=== PATIENT | male | born 1975 | race Caucasian/White ===

== ENCOUNTER 2022-08-24 07:56 | Inpatient (IN) | payer MEDICARE, MEDICAID ==
[2022-08-24] MEDS ORDERED: Albuterol 0.083% 2.5 MG/3 ML Neb Soln NEB ONE (07:59)
[2022-08-24] MEDS ORDERED: Ipratropium 0.02% 0.5 MG/2.5 ML Neb Soln NEB ONE (07:59)
[2022-08-24] MEDS ORDERED: Aspirin 81 MG Tab.Chew PO ONE (08:00)
[2022-08-24 08:51] LABS: CARBON DIOXIDE,CO2 26.3 mmol/L (21.0-32.0); CORONAVIRUS COVID-19 NAA POSITIVE (NEGATIVE); INFLUENZA A NAA NEGATIVE (NEGATIVE); INFLUENZA B NAA NEGATIVE (NEGATIVE)
[2022-08-24] MEDS: Furosemide 20 MG/2 ML VIAL IVPUSH ONE ×2 (08:58→09:00)
[2022-08-24] MEDS ORDERED: Magnesium Sulfate/Water 2 GM in Premix Bag 1 BAG IV ONE (09:15)
[2022-08-24] MEDS ORDERED: Dexamethasone 10 MG/ML SDV IVPUSH ONE (09:22)
[2022-08-24] MEDS ORDERED: Acetaminophen 500 MG Tab PO ONE (09:29)
[2022-08-24] MEDS: Potassium Chloride 100 ML IV SCH ×2 (09:29→12:13)
[2022-08-24] MEDS ORDERED: Sodium Chloride 0.9% 500 ML IV ONE (09:30)
[2022-08-24] MEDS ORDERED: Ondansetron 4 MG/2 ML SDV IVPUSH ONE (09:33)
[2022-08-24] MEDS ORDERED: Iopamidol 755 MG/ML 500 ML Multipack Bottle IVPUSH STA (09:50)
[2022-08-24] MEDS ORDERED: Heparin Sodium 5,000 Units/ML Vial IVPUSH ONE (11:02)
[2022-08-24] MEDS: Heparin Sodium/0.45% NaCl 500 ML IV SCH (11:24)
[2022-08-24] MEDS ORDERED: Cyclobenzaprine 10 MG Tab PO PRN ×2 (14:30→22:25)
[2022-08-24] MEDS ORDERED: Acetaminophen 325 MG Tab PO PRN (14:30)
[2022-08-24] MEDS ORDERED: Albuterol/Ipratropium 3.0-0.5 MG/3 ML Neb Soln NEB PRN (14:30)
[2022-08-24] MEDS: Metoprolol Tartrate 25 MG Tab PO SCH (22:52)
[2022-08-25] MEDS ORDERED: VANCOmycin 1.75 GM/350 ML 1.75 GM in Premix Bag 1 BAG IV ONE (02:00)
[2022-08-25] MEDS ORDERED: Piperacillin/Tazobactam 4.5 GM in Sodium Chloride 0.9% 100 ML IV ONE (02:00)
[2022-08-25] MEDS ORDERED: Sodium Chloride 0.9% 250 ML ONE (02:02)
[2022-08-25] MEDS ORDERED: Norepinephrine Bit/D5W Premix 250 ML IV SCH (05:45)
[2022-08-25] MEDS ORDERED: Lactated Ringers 1,000 ML IV SCH (05:45)
[2022-08-25 07:08] LABS: CARBON DIOXIDE,CO2 17.7 mmol/L (21.0-32.0)
[2022-08-25] MEDS ORDERED: Piperacillin/Tazobactam 4.5 GM in Sodium Chloride 0.9% 100 ML IV SCH ×2 (08:00→10:00)
[2022-08-25] MEDS ORDERED: Albumin 5% 500 ML IV ONE (08:41)
[2022-08-25] MEDS ORDERED: Sodium Chloride 0.9% 1,000 ML IV SCH ×2 (08:45→17:37)
[2022-08-25] MEDS: Omeprazole 20 MG Cap.CR PO SCH (08:51)
[2022-08-25] MEDS ORDERED: Potassium Chloride 10 MEQ Tab.ER PO SCH (09:00)
[2022-08-25] MEDS ORDERED: Furosemide 40 MG/4 ML VIAL IV SCH (09:00)
[2022-08-25] MEDS ORDERED: Furosemide 40 MG in Sodium Chloride 0.9% 50 ML IV SCH (09:00)
[2022-08-25] MEDS ORDERED: Losartan 50 MG Tab PO SCH ×2 (09:00)
[2022-08-25] MEDS: Heparin Sodium/0.45% NaCl 500 ML IV SCH (09:24)
[2022-08-25] MEDS: Nicotine 14 MG/24 Hr Patch TRDERM SCH (09:34)
[2022-08-25] MEDS: Gabapentin 300 MG Cap PO SCH ×2 (09:35→22:46)
[2022-08-25] MEDS ORDERED: Magnesium Sulfate/Water 2 GM in Premix Bag 1 BAG IV ONE (09:38)
[2022-08-25] MEDS: Metoprolol Tartrate 25 MG Tab PO SCH ×4 (11:40→22:52)
[2022-08-25] MEDS ORDERED: Magnesium Sulfate/Water 0 ML ONE (11:47)
[2022-08-25] MEDS ORDERED: Sodium Chloride 0.9% 500 ML IV ONE (12:00)
[2022-08-25] MEDS: Piperacillin/Tazobactam 4.5 GM in Sodium Chloride 0.9% 100 ML IV SCH ×2 (12:10→22:05)
[2022-08-25 15:18] LABS: CARBON DIOXIDE,CO2 15.2 mmol/L (21.0-32.0); POTASSIUM,K 4.3 mmol/L (3.5-5.1)
[2022-08-25] MEDS ORDERED: Furosemide 40 MG/4 ML VIAL IVPUSH SCH (15:30)
[2022-08-25] MEDS ORDERED: Sodium Chloride 0.9% 500 ML IV SCH (15:30)
[2022-08-25] MEDS ORDERED: Albumin 5% 500 ML IV STA (20:37)
[2022-08-25] MEDS ORDERED: Aspirin 325 MG Tab.EC PO SCH (21:00)
[2022-08-25] MEDS ORDERED: Calcium Gluconate 10% 1 GM/10 ML SDV IV ONE (21:42)
[2022-08-25] MEDS: Hydrocortisone Sodium Succinate 100 MG/2 ML SDV IVPUSH SCH (23:12)
[2022-08-25] MEDS ORDERED: Ondansetron 4 MG/2 ML SDV IVPUSH PRN (23:22)
[2022-08-25] MEDS ORDERED: LORazepam 2 MG/ML SDV IVPUSH ONE (23:23)
[2022-08-26] MEDS ORDERED: Furosemide 40 MG/4 ML VIAL IVPUSH ONE (00:38)
[2022-08-26] MEDS ORDERED: Sodium Bicarbonate 8.4% 50 MEQ/50 ML Syringe IVPUSH ONE (03:17)
[2022-08-26] MEDS ORDERED: Sodium Bicarbonate 150 MEQ in Dextrose 5% in Water 1,000 ML IV ONE ×2 (03:17)
[2022-08-26] MEDS ORDERED: Thiamine 100 MG in Sodium Chloride 0.9% 100 ML IV SCH (03:30)
[2022-08-26] MEDS ORDERED: Sodium Bicarbonate 8.4% 50 MEQ/50 ML Syringe ONE (03:55)
[2022-08-26] MEDS: Heparin Sodium/0.45% NaCl 500 ML IV SCH (04:44)
[2022-08-26] MEDS: Hydrocortisone Sodium Succinate 100 MG/2 ML SDV IVPUSH SCH ×2 (04:58→10:21)
[2022-08-26 04:59] LABS: CARBON DIOXIDE,CO2 14.1 mmol/L (21.0-32.0)
[2022-08-26] MEDS: Octreotide 100 MCG/1 ML Amp SUBCUT SCH ×2 (05:02→06:34)
[2022-08-26] MEDS: Piperacillin/Tazobactam 4.5 GM in Sodium Chloride 0.9% 100 ML IV SCH (05:22)
[2022-08-26] MEDS: Albumin 5% 250 ML IV SCH ×2 (06:04→07:38)
[2022-08-26] MEDS ORDERED: Furosemide 40 MG/4 ML VIAL IVPUSH SCH (08:00)
[2022-08-26] MEDS ORDERED: Albumin 25% 12.5 GM/50 ML Bag IV SCH ×4 (08:00→15:30)
[2022-08-26] MEDS: Nicotine 14 MG/24 Hr Patch TRDERM SCH (08:45)
[2022-08-26] MEDS: Omeprazole 20 MG Cap.CR PO SCH (08:45)
[2022-08-26] MEDS ORDERED: Albuterol 0.083% 2.5 MG/3 ML Neb Soln NEB PRN (10:13)
[2022-08-26] MEDS ORDERED: Ipratropium 0.02% 0.5 MG/2.5 ML Neb Soln NEB PRN (10:13)
[2022-08-26] MEDS: Gabapentin 300 MG Cap PO SCH (10:36)
[2022-08-26] MEDS ORDERED: Cefepime 2 GM in Sodium Chloride 0.9% 50 ML IV SCH (12:00)
[2022-08-26] MEDS ORDERED: metroNIDAZOLE/Normal Saline 100 ML IV SCH (13:00)
[2022-08-26] MEDS ORDERED: LORazepam 1 MG Tab PO ONE (13:39)
[2022-08-27] MEDS ORDERED: Thiamine 200 MG/2 ML MDV IVPUSH SCH (09:00)
== END 2022-08-26 13:50 | DRG 175 ==
LOC: MW.ED 07:56 → MW.MS 14:20 → MERGE 14:20 → MW.ICU 08-25 05:19
PROVIDERS: ADMIT Pediatrics; ATTEND Pediatrics
DX: I26.93 Single subsegmental thrombotic pulmonary embolism without acute cor pulmonale (principal); A41.9 Sepsis, unspecified organism; U07.1 COVID-19; E87.1 Hypo-osmolality and hyponatremia; I13.0 Hypertensive heart and chronic kidney disease with heart failure and stage 1 through stage 4 chronic kidney disease, or unspecified chronic kidney disease; R18.8 Other ascites; D84.9 Immunodeficiency, unspecified; L02.31 Cutaneous abscess of buttock; J43.9 Emphysema, unspecified; R09.02 Hypoxemia; F17.210 Nicotine dependence, cigarettes, uncomplicated; G89.29 Other chronic pain; M54.9 Dorsalgia, unspecified; I50.813 Acute on chronic right heart failure; N18.2 Chronic kidney disease, stage 2 (mild); L73.2 Hidradenitis suppurativa; B33.24 Viral cardiomyopathy; K72.90 Hepatic failure, unspecified without coma; E87.6 Hypokalemia; M54.16 Radiculopathy, lumbar region; E83.42 Hypomagnesemia; Z79.899 Other long term (current) drug therapy; Z98.890 Other specified postprocedural states; Z90.49 Acquired absence of other specified parts of digestive tract; Z79.82 Long term (current) use of aspirin; Z79.51 Long term (current) use of inhaled steroids; Z88.5 Allergy status to narcotic agent; Z91.018 Allergy to other foods; Z98.1 Arthrodesis status
CPT/HCPCS: 0240U; 36415; 51702; 71045; 71045-26; 71275; 71275-26; 74176; 74176-26; 80048; 80053; 80202; 80307; 82803; 83605; 83735; 83880; 84443; 84484; 85025; 85379; 85610; 85730; 87040; 93005; 93010; 93306; 93970; 93970-26; 94640; 99222; 99233; 99239; 99291; A9270-GY; J0610; J0692; J1100; J1644; J1720; J1940; J2060; J2354-JB-GY; J2405; J2543; J3370; J3411; J3475; J3480; J3490; J7030; J7040; J7050; J7060; J7120; J7620-GY; P9045; P9047; Q9967

== ENCOUNTER 2022-09-17 17:41 | Emergency (ER) | payer MEDICARE, MEDICAID ==
[2022-09-17 19:22] LABS: CARBON DIOXIDE,CO2 27.2 mmol/L (21.0-32.0); POTASSIUM,K 3.8 mmol/L (3.5-5.1)
[2022-09-17] MEDS ORDERED: Magnesium Sulfate/Water 2 GM in Premix Bag 1 BAG IV ONE (19:43)
[2022-09-17] MEDS ORDERED: Magnesium Oxide 400 MG Tab PO ONE (20:07)
[2022-09-17] MEDS ORDERED: Furosemide 40 MG/4 ML VIAL IVPUSH ONE (20:07)
[2022-09-17 20:08] LABS: CORONAVIRUS COVID-19 NAA NEGATIVE (NEGATIVE); INFLUENZA A NAA NEGATIVE (NEGATIVE); INFLUENZA B NAA NEGATIVE (NEGATIVE); RESPIRATORY SYNCYTIAL VIR NAA NEGATIVE (NEGATIVE)
[2022-09-17] MEDS ORDERED: Bacitracin Oint 28.35 GM Tube TOP SCH (22:00)
== END 2022-09-17 22:10 | disposition home or self-care (01) ==
LOC: MW.ED 17:41
DX: E83.42 Hypomagnesemia (principal); I10 Essential (primary) hypertension; Z88.5 Allergy status to narcotic agent; Z91.018 Allergy to other foods; Z91.048 Other nonmedicinal substance allergy status; Z20.822 Contact with and (suspected) exposure to COVID-19
CPT/HCPCS: 0241U; 36415; 71045; 80053; 83735; 83880; 84100; 85025; 93005; 96365; 96366; 96375; 99284; A9270; J1940; J3475